=== PATIENT | male | born 1950 | race Caucasian/White ===

== ENCOUNTER 2016-09-25 15:09 | Outpatient (RCR) | payer MEDICARE, OTHER ==
[~2016-09-25] VITALS: Ht 165.1 cm; Wt 68.0 kg
[2016-09-28] MEDS ORDERED: Lidocaine 4% Top Soln 50ml TOPIC ONE (13:00)
== END 2016-10-02 | disposition home or self-care (01) ==
LOC: WCC 15:09
DX: E11.621 Type 2 diabetes mellitus with foot ulcer (principal); I51.9 Heart disease, unspecified; I10 Essential (primary) hypertension; J98.4 Other disorders of lung; Z79.82 Long term (current) use of aspirin; I73.9 Peripheral vascular disease, unspecified
CPT/HCPCS: 11043; 82962; 87070; 87181; 87205; G0463

== ENCOUNTER 2016-10-09 14:59 | Outpatient (RCR) | payer MEDICARE, OTHER ==
[~2016-10-09] VITALS: Ht 165.1 cm; Wt 68.0 kg
[2016-10-18] MEDS ORDERED: Lidocaine HCl 2% Jelly 5ml Tube TOPIC ONE (11:45)
--- NOTE | 2016-10-23 15:02 | Infectious Diseases Prog Note ---
Assessment/Plan Problems: (1) Open wound of left heel Assessment & Plan: with MRSA soft tissue infection, MRI was negative for underlying osteomyelitis, will continue doxycycline for two weeks total , his wound looks better with no sign of infection, and good granulation at the base .continue local wound care as per wound care nurse and military personnel specialist. (2) PVD (peripheral vascular disease) Assessment & Plan: S/P revascularization , follow up with vascular as needed (3) Diabetes Assessment & Plan: recommend tight glycemic control to keep blood glucose between 80-120 Subjective Constitutional: Denies: anorexia, chills, drenching sweats, fatigue, fever, no symptoms, other HEENT: Denies: congestion, coryza, dysphagia, hearing change, no symptoms, other, visual change Respiratory: Denies: dry cough, no symptoms, other, productive cough, shortness of breath Cardiovascular: Denies: chest pain, dyspnea on exertion, no symptoms, other, palpitations Gastrointestinal/Abdominal: Denies: bloating, blood in stool, constipation, diarrhea, nausea, no symptoms, other, vomiting Genitourinary: Denies: dysuria, frequency, hematuria, no symptoms, nocturia, other Neurologic: Denies: confusion, headache, no symptoms, numbness, other, weakness Psychiatric: Denies: anxiety, depression, no symptoms, other Skin: Reports: ulcer Allergies: Coded Allergies: NO KNOWN DRUG ALLERGIES (Verified Allergy, Unknown, 09/28/16) Subjective he was doing better, his wound looks clean and dry, with good granulation , no necrosis or exudate Objective General Appearance: WD/WN, no acute distress HEENT: normocephalic, atraumatic, anicteric, mucous membranes moist Respiratory/Chest: chest wall non-tender, lungs clear, normal breath sounds, no respiratory distress, no accessory muscle use Cardiovascular: normal peripheral pulses, normal rate, regular rhythm, no JVD Abdomen: normal bowel sounds, soft, non tender, no organomegaly, non distended , no mass Extremities: no cyanosis, no clubbing Skin: no rash, ulcers - left heel wound with clean borders, no pus or drainage , good granulation at the base Claudia Martinez M.D. Oct 23, 2016 15:02
== END 2016-11-02 | disposition home or self-care (01) ==
LOC: WCC 14:59
DX: L97.423 Non-pressure chronic ulcer of left heel and midfoot with necrosis of muscle (principal); L03.116 Cellulitis of left lower limb; I73.89 Other specified peripheral vascular diseases; E08.51 Diabetes mellitus due to underlying condition with diabetic peripheral angiopathy without gangrene; Z87.891 Personal history of nicotine dependence; I51.9 Heart disease, unspecified; I73.9 Peripheral vascular disease, unspecified; J98.4 Other disorders of lung; I10 Essential (primary) hypertension
CPT/HCPCS: 11043; G0463

== ENCOUNTER → 2016-10-09 | Outpatient (CLI) | payer MEDICARE, OTHER ==
--- NOTE | 2016-10-09 23:58 | Consultation ---
DATE OF CONSULTATION: INFECTIOUS DISEASE CONSULTATION CONSULTING PHYSICIAN: Claudia Martinez M.D. REQUESTING PHYSICIAN: Daniel Balbuena M.D. REASON FOR CONSULTATION: Left heel non-healed decubitus wound infection with MRSA. Recommendation for antibiotics treatment. HISTORY OF PRESENT ILLNESS: The patient is a 66-year-old [place] male with past medical history of coronary artery disease, diabetes type 2, peripheral vascular disease, and hypertension, who had recent left lower extremity revascularization in outside hospital in September 2016 due to severe vascular disease and they were able to achieve 35% success of the revascularization as per his report. He was found to have left heel wound at the outside facility and underwent MRI of the left heel and that was negative for osteomyelitis. The patient continued to have left heel wound on the lateral posterior aspect of his left heel, continued to grow in size, and he had pus draining out of the wound, so he was referred to the wound care clinic for further evaluation and management. Culture was obtained from his left heel on the 10/02/2016 after he had surgical debridement by Dr. Balbuena and his culture grew MRSA sensitive to multiple antibiotics including Bactrim. The patient was given Bactrim for seven days on 10/05/2016 after he was on Keflex and Flagyl for unknown duration and I was asked by the solid tire tuber machine operator today evaluate his wound for further recommendation on his MRSA left heel wound infection. His wound seems to be infected with exudate and necrotic tissue at the base of the wound draining dark brownish pus material. The patient is nonambulatory. He is wheelchair bounded. He denied any fever or chills. Denied any left heel pain or numbness. Denied any other symptoms. PAST MEDICAL HISTORY: Significant for coronary artery disease, diabetes type 2, peripheral vascular disease, lung disease, and hypertension. PAST SURGICAL HISTORY: He had revascularization of his left lower extremity in September 2016 at an outside hospital. MEDICATIONS: He is on Bactrim Double Strength 800 mg oral twice daily for seven days. He also received Flagyl and cephalexin prior to that. Other medication including aspirin, amiodarone, atorvastatin, metoprolol, and Lasix. ALLERGIES: He has no known drug allergy. SOCIAL HISTORY: The patient lives with and son. He is on disability. Unemployed. Denies using any drugs, tobacco, or alcohol. FAMILY HISTORY: Not contributory. REVIEW OF SYSTEMS: A 12-point of system reviewed were all negative apart from the one I mentioned above in my History and Physical. PHYSICAL EXAMINATION: GENERAL: An elderly male, [place] speaker, sitting in a wheelchair, awake, alert, and not in distress. HEENT: Normocephalic and atraumatic. Pupils reactive to light. Pale sclera. Dry oral mucosa. No exudate. NECK: Supple. No lymphadenopathy. CARDIOVASCULAR: Regular rate and rhythm. No murmur or gallop. LUNGS: Clear bilaterally. No wheezing or rhonchi. ABDOMEN: Soft, nontender, and nondistended. Positive bowel sounds. No hepatosplenomegaly. EXTREMITIES: He had left heel decubitus wound with exudate draining pus material, brownish in color, with skin necrosis at the ends and the borders of his wound. Muscle atrophy with loss air on both lower extremity and poor pulse in the distal pedal area. LABORATORY DATA: Not available today. MICROBIOLOGY: On 10/02/2016, left heel wound culture grew MRSA sensitive to tetracycline, Bactrim, vancomycin, Zyvox, and rifampin. ASSESSMENT: 1. Left heel wound, non-healing with diabetes and poor vascular circulation in the left lower extremity. His chance of recovery on antibiotics is poor since he had only 35% revascularization achieved. The patient will require MRI of the left heel to rule out osteomyelitis at first before we proceed with his antibiotics treatment. We will continue Bactrim for now to treat for methicillin-resistant Staphylococcus aureus, soft tissue infection until osteomyelitis is ruled out. The patient is aware that antibiotics alone may not heal or close his wound completely since he had vascular problem. All questions answered in detail to his and him and his son at the bedside. We will follow up on the result of the MRI. Obtain lab including sed rate and monitor weekly while he is on antibiotics therapy. 2. Diabetes. Recommend tight glycemic control to keep blood sugar between 80 to 120. 3. Peripheral vascular disease status post revascularization unsuccessful completely to achieve 100%. This may delay his healing process and prevent his wound from closing completely. The patient and family are aware. Please feel free to call with any questions. Claudia Martinez M.D. DR: JUAN DAVID JOB#: [id number] CC:
--- NOTE | 2016-10-10 12:20 | Diagnostic Imaging Report ---
Indication: 66 are old with nonhealing wound in the left heel Technique: Left ankle/hindfoot imaging utilizing multiplanar T1 fast spin-echo, proton and T2 fast spin-echo with fat saturation, and STIR. Comparison: None Findings: There is no obvious osteomyelitis findings with the grossly maintained normal signal intensity within the calcaneus. However, the study is nondiagnostic due to motion and one could easily miss a small focus of osteomyelitis on this exam. Recommend repeating the exam when and if the patient could be sedated adequately. There is no obvious abscess. Impression: No obvious MR evidence for osteomyelitis. However the study is relatively nondiagnostic due to motion
== END | disposition home or self-care (01) ==
LOC: MRI 16:00
DX: M86.9 Osteomyelitis, unspecified (principal)

== ENCOUNTER 2016-11-27 14:06 | Outpatient (RCR) | payer MEDICARE, OTHER | END 2016-12-02 | disposition home or self-care (01) | LOC: WCC 14:06 | DX: L97.423 Non-pressure chronic ulcer of left heel and midfoot with necrosis of muscle (principal); I73.89 Other specified peripheral vascular diseases; E08.51 Diabetes mellitus due to underlying condition with diabetic peripheral angiopathy without gangrene; Z87.891 Personal history of nicotine dependence; I51.9 Heart disease, unspecified; E11.9 Type 2 diabetes mellitus without complications; I10 Essential (primary) hypertension; J98.4 Other disorders of lung; Z79.82 Long term (current) use of aspirin | CPT/HCPCS: G0463 ==

== ENCOUNTER 2016-12-04 14:00 | Outpatient (RCR) | payer MEDICARE, OTHER ==
[~2016-12-04] VITALS: Ht 165.1 cm; Wt 68.0 kg
[2016-12-14] MEDS ORDERED: Lidocaine 4% Top Soln 50ml TOPIC ONE (16:00)
== END 2017-01-02 | disposition home or self-care (01) ==
LOC: WCC 14:00
DX: L97.423 Non-pressure chronic ulcer of left heel and midfoot with necrosis of muscle (principal); I73.89 Other specified peripheral vascular diseases; E08.51 Diabetes mellitus due to underlying condition with diabetic peripheral angiopathy without gangrene; I51.9 Heart disease, unspecified; I10 Essential (primary) hypertension; Z79.82 Long term (current) use of aspirin; J98.4 Other disorders of lung
CPT/HCPCS: 11043; 87070; 87181; 87205; G0463

== ENCOUNTER 2017-01-15 14:00 | Outpatient (RCR) | payer MEDICARE, OTHER ==
[~2017-01-15] VITALS: Ht 165.1 cm; Wt 68.0 kg
[2017-01-16] MEDS ORDERED: Lidocaine HCl 2% Jelly 5ml Tube TOPIC ONE (16:00)
[2017-01-24] MEDS ORDERED: Lidocaine HCl 2% Jelly 5ml Tube TOPIC ONE (18:00)
== END 2017-02-01 | disposition home or self-care (01) ==
LOC: WCC 14:00
DX: L97.423 Non-pressure chronic ulcer of left heel and midfoot with necrosis of muscle (principal); I73.89 Other specified peripheral vascular diseases; E08.51 Diabetes mellitus due to underlying condition with diabetic peripheral angiopathy without gangrene; I11.9 Hypertensive heart disease without heart failure; E11.9 Type 2 diabetes mellitus without complications; J98.4 Other disorders of lung; Z79.82 Long term (current) use of aspirin
CPT/HCPCS: 11043; 15275; 87070; 87181; 87205; G0463; Q4133

== ENCOUNTER 2017-02-19 14:40 | Outpatient (RCR) | payer MEDICARE, OTHER | END 2017-03-04 | disposition home or self-care (01) | LOC: WCC 14:40 | DX: L97.423 Non-pressure chronic ulcer of left heel and midfoot with necrosis of muscle (principal); E08.51 Diabetes mellitus due to underlying condition with diabetic peripheral angiopathy without gangrene; I73.89 Other specified peripheral vascular diseases; Z98.84 Bariatric surgery status; I10 Essential (primary) hypertension; J98.4 Other disorders of lung; Z79.82 Long term (current) use of aspirin | CPT/HCPCS: G0463 ×2 ==

== ENCOUNTER 2017-03-05 14:30 | Outpatient (RCR) | payer MEDICARE, OTHER | END 2017-04-04 | disposition home or self-care (01) | LOC: WCC 14:30 | DX: L97.423 Non-pressure chronic ulcer of left heel and midfoot with necrosis of muscle (principal); I73.89 Other specified peripheral vascular diseases; E08.51 Diabetes mellitus due to underlying condition with diabetic peripheral angiopathy without gangrene; I11.9 Hypertensive heart disease without heart failure; J98.4 Other disorders of lung; Z79.82 Long term (current) use of aspirin | CPT/HCPCS: 11042; G0463 ==

== ENCOUNTER 2017-03-26 15:15 | Outpatient (CLI) | payer MEDICARE, OTHER | END 2017-03-26 17:15 | disposition home or self-care (01) | LOC: VAS 15:15 | DX: R22.42 Localized swelling, mass and lump, left lower limb (principal); M79.605 Pain in left leg | CPT/HCPCS: 93970 ==

== ENCOUNTER 2017-04-09 14:30 | Outpatient (RCR) | payer MEDICARE, OTHER | END 2017-05-04 | disposition home or self-care (01) | LOC: WCC 14:30 | DX: L97.423 Non-pressure chronic ulcer of left heel and midfoot with necrosis of muscle (principal); I73.89 Other specified peripheral vascular diseases; E08.51 Diabetes mellitus due to underlying condition with diabetic peripheral angiopathy without gangrene; I11.9 Hypertensive heart disease without heart failure; Z79.82 Long term (current) use of aspirin | CPT/HCPCS: 11042; G0463 ==

== ENCOUNTER 2017-05-07 14:30 | Outpatient (RCR) | payer MEDICARE, OTHER | END 2017-06-04 | disposition home or self-care (01) | LOC: WCC 14:30 | DX: L97.423 Non-pressure chronic ulcer of left heel and midfoot with necrosis of muscle (principal); I73.89 Other specified peripheral vascular diseases; I11.9 Hypertensive heart disease without heart failure; J98.4 Other disorders of lung; Z79.82 Long term (current) use of aspirin; E08.51 Diabetes mellitus due to underlying condition with diabetic peripheral angiopathy without gangrene | CPT/HCPCS: G0463 ×2 ==

== ENCOUNTER 2017-06-18 14:07 | Outpatient (RCR) | payer MEDICARE, OTHER | END 2017-07-04 | disposition home or self-care (01) | LOC: WCC 14:07 | DX: L97.423 Non-pressure chronic ulcer of left heel and midfoot with necrosis of muscle (principal); I73.89 Other specified peripheral vascular diseases; E08.51 Diabetes mellitus due to underlying condition with diabetic peripheral angiopathy without gangrene; I11.9 Hypertensive heart disease without heart failure; J98.4 Other disorders of lung; Z79.82 Long term (current) use of aspirin | CPT/HCPCS: 11042 ==

== ENCOUNTER 2017-07-16 14:11 | Outpatient (RCR) | payer MEDICARE, OTHER | END 2017-08-04 | disposition home or self-care (01) | LOC: WCC 14:11 | DX: L97.423 Non-pressure chronic ulcer of left heel and midfoot with necrosis of muscle (principal); E08.51 Diabetes mellitus due to underlying condition with diabetic peripheral angiopathy without gangrene; I73.89 Other specified peripheral vascular diseases; Z83.3 Family history of diabetes mellitus; Z82.49 Family history of ischemic heart disease and other diseases of the circulatory system; Z82.3 Family history of stroke; I11.9 Hypertensive heart disease without heart failure; E11.9 Type 2 diabetes mellitus without complications; Z79.82 Long term (current) use of aspirin | CPT/HCPCS: G0463 ==

== ENCOUNTER 2017-08-20 14:20 | Outpatient (RCR) | payer MEDICARE, OTHER ==
--- NOTE | 2017-09-05 13:36 | Infectious Diseases Prog Note ---
Assessment/Plan Problems: (1) Open wound of left heel Assessment & Plan: Wound culture noted. Agree with doxycycline. Does not appear grossly infected any more. Finish current course of doxycycline. Continue with wound care. (2) PVD (peripheral vascular disease) (3) Diabetes Assessment & Plan: Status post revascularization. Assessment/Plan (Late entry for 09/03/2017) Subjective Allergies: Coded Allergies: NO KNOWN DRUG ALLERGIES (Verified Allergy, Unknown, 09/28/16) LORNA SANDOVAL Sep 05, 2017 13:36
== END 2017-09-04 | disposition home or self-care (01) ==
LOC: WCC 14:20
DX: L97.423 Non-pressure chronic ulcer of left heel and midfoot with necrosis of muscle (principal); I73.89 Other specified peripheral vascular diseases; E08.51 Diabetes mellitus due to underlying condition with diabetic peripheral angiopathy without gangrene; E11.621 Type 2 diabetes mellitus with foot ulcer; Z87.891 Personal history of nicotine dependence; L03.116 Cellulitis of left lower limb
CPT/HCPCS: 11042; 11043; 87070; 87181; 87205

== ENCOUNTER 2017-09-10 14:08 | Outpatient (RCR) | payer MEDICARE, OTHER | END 2017-10-02 | disposition home or self-care (01) | LOC: WCC 14:08 | DX: L97.423 Non-pressure chronic ulcer of left heel and midfoot with necrosis of muscle (principal); E08.51 Diabetes mellitus due to underlying condition with diabetic peripheral angiopathy without gangrene; I73.89 Other specified peripheral vascular diseases; B35.3 Tinea pedis; I11.9 Hypertensive heart disease without heart failure; I73.9 Peripheral vascular disease, unspecified; Z79.82 Long term (current) use of aspirin | CPT/HCPCS: 11043; 15275; G0463; Q4133 ==

== ENCOUNTER 2017-10-08 14:20 | Outpatient (RCR) | payer MEDICARE, OTHER | END 2017-11-02 | disposition home or self-care (01) | LOC: WCC 14:20 | DX: L97.423 Non-pressure chronic ulcer of left heel and midfoot with necrosis of muscle (principal); E08.51 Diabetes mellitus due to underlying condition with diabetic peripheral angiopathy without gangrene; I73.89 Other specified peripheral vascular diseases; B35.3 Tinea pedis; Z83.3 Family history of diabetes mellitus; Z82.49 Family history of ischemic heart disease and other diseases of the circulatory system; Z82.3 Family history of stroke; Z87.891 Personal history of nicotine dependence; Z98.84 Bariatric surgery status; M86.172 Other acute osteomyelitis, left ankle and foot; I11.9 Hypertensive heart disease without heart failure; Z79.82 Long term (current) use of aspirin | CPT/HCPCS: 11042; 87070; 87205; G0463 ==

== ENCOUNTER 2017-10-08 14:56 | Outpatient (CLI) | payer MEDICARE, OTHER ==
--- NOTE | 2017-10-08 16:39 | Diagnostic Imaging Report ---
Indication: Pain in the lateral part of the foot Technique: Left foot imaging utilizing multiplanar T1 fast spin-echo, proton and T2 fast spin-echo with fat saturation, and STIR. Comparison: None Findings: Clinically patient has an apparent ulcer or wound in the lateral part of the foot. A marker was placed in the area of clinical concern. Just deep to this marker, there is a fracture involving the base of the fifth metatarsal. The fracture appears nonunited on this examination. Plain film correlation is recommended. There is naturally some mild abnormal signal associated with the fracture and as such there is some T2 hyperintense/T1 hypointense edema at the fracture site. There is generalized subcutaneous edema noted. This is more prominent in the level of the ankle rather than in the area of clinical concern which is lower down. IMPRESSION: Fracture involving the base of the fifth metatarsal with some associated signal alteration. Abnormal findings on this MRI may all be accounted for by the fracture. Correlation with plain film is suggested. Superimposed osteomyelitis could certainly occur and is not excluded in the appropriate clinical setting.
== END 2017-10-08 16:56 | disposition home or self-care (01) ==
LOC: MRI 14:56
DX: M86.9 Osteomyelitis, unspecified (principal); S92.352A Displaced fracture of fifth metatarsal bone, left foot, initial encounter for closed fracture; X58.XXXA Exposure to other specified factors, initial encounter; Y93.9 Activity, unspecified; Y92.9 Unspecified place or not applicable

== ENCOUNTER 2017-10-18 11:39 | Outpatient (CLI) | payer MEDICARE, OTHER ==
[~2017-10-18] VITALS: Ht 162.6 cm; Wt 83.0 kg
[2017-10-18] MEDS ORDERED: Heparin 2000 units/Ns 1000ml INJ ONE (12:00)
[2017-10-18] MEDS ORDERED: Lidocaine 1% Plain 30 ml INJ ONE (12:00)
--- NOTE | 2017-10-18 15:23 | Diagnostic Imaging Report ---
Indications: Needs long-term IV access Technique: Ultrasound confirms patent compressible left basilic vein. Total sterile technique, including sterile probe cover and sterile gel, hat, mask,, sterile gown, large sterile drape, and preparation with 2% chlorhexidine utilized. Local anesthesia with 1% lidocaine. Under real-time ultrasound guidance, puncture basilic vein using 21-gauge needle, documented and archived, passage 0.018 guidewire under direct fluoroscopy, which was used to determine appropriate catheter length, exchange for 5 Greek peel-away sheath. 5 Greek Bard dual-lumen power PICC cut to 42 cm. It was inserted through the peel-away sheath. Peel-away sheath and guidewire removed. Catheter fixed to the skin. Both catheter ports aspirated and flushed. Patient tolerated procedure well, without immediate complication. Digital radiograph documents satisfactory catheter tip position, at the cavoatrial junction. Total fluoroscopy time 0.6 minutes. Total dose area product 19 dGycm2 Impression: Successful placement of left arm PICC under sonographic and fluoroscopic guidance, as described above.
--- NOTE | 2017-10-23 15:12 | Infectious Diseases Prog Note ---
Assessment/Plan Problems: (1) Osteomyelitis of foot, left, acute Assessment & Plan: Given the MRI and clinical finding - agree osteomyelitis is likely present. Get a PICC line. Follow-up new wound culture. Plan for a 6-week course of vancomycin IV based on previous foot wound culture. CBC/BMP/ESR/CRP qwk on antibiotics. Encourage to off-load. Probably can benefit from some debridement to open the tunnel up - discussed with Dr. Balbuena. Plan to wait for vascular procedure to be done first. (2) PVD (peripheral vascular disease) Assessment & Plan: Pending follow-up with vascular surgery. (3) Diabetes (4) Open wound of left heel Assessment & Plan: Clean. Continue with wound care. Assessment/Plan DOS: 10/18/2017 Infectious Diseases Progress Note Lorna Camara M.D., Ph.D. (Office: [phone], Pager: [phone]) Thank you for the consultation! Please do not hesitate to call with questions. Cell/Txt msg is [phone]. CC: Wound infection. ID: Ken Kaur is a 67 year-old male. Interval Events:Had an MRI which showed a fracture at 5th metatarsal. Medications: Reviewed. Antibiotics: None. Review of systems: Constitutional: Negative. Respiratory: Negative. Gastrointestinal: Negative. Neurological: Negative. Integumentary: Wound. Musculoskeletal: Negative. Physical Exams: Vitals - Reviewed and as noted below. General: Elderly. Eyes: Conjunctivae clear. ENMT: Nose/ears are atraumatic. Neck: Neck is symmetrical. Line: None. Respiratory: Normal respiratory effort. Chest: Symmetric. Cardiovascular: No lower extremity edema. Gastrointestinal: Soft, non-tender. Musculoskeletal: No joint effusions. Skin: Left heel ulcer is clean without drainage. Imprved. On the lateral surface a small opening with underlying - corresponding to the area of facture. Psychiatric: Alert and oriented times 3. Neurological: No tremor. Genitourinary: No Galvan. Laboratory: Reviewed and as noted below. Micro:Extended review of records showed: Reviewed and as noted below. Imaging:Images were reviewed personally. Reviewed and as noted below. Subjective Allergies: Coded Allergies: NO KNOWN DRUG ALLERGIES (Verified Allergy, Unknown, 09/28/16) LORNA CAMARA Oct 23, 2017 15:11
== END 2017-10-18 13:39 | disposition home or self-care (01) ==
LOC: RAD 11:39
DX: Z79.899 Other long term (current) drug therapy (principal)
CPT/HCPCS: 36569; 76937; J1644; J2001

== ENCOUNTER 2017-11-05 11:12 | Outpatient (RCR) | payer MEDICARE, OTHER | END 2017-12-02 | disposition home or self-care (01) | LOC: WCC 11:12 | DX: L97.423 Non-pressure chronic ulcer of left heel and midfoot with necrosis of muscle (principal); E08.51 Diabetes mellitus due to underlying condition with diabetic peripheral angiopathy without gangrene; I73.89 Other specified peripheral vascular diseases; M86.172 Other acute osteomyelitis, left ankle and foot; Z98.84 Bariatric surgery status; I11.9 Hypertensive heart disease without heart failure; E11.9 Type 2 diabetes mellitus without complications; J98.4 Other disorders of lung; Z79.82 Long term (current) use of aspirin | CPT/HCPCS: 15275; G0463; Q4133 ==